=== PATIENT | female | born 1990 | race Caucasian/White ===

== ENCOUNTER 2020-09-13 20:41 | Emergency (ER) | payer SELFPAY ==
[~2020-09-13 20:41] MED LIST: IBUP-1060 PO; SULF1TAB24 PO
== END 2020-09-13 21:13 | disposition left against medical advice (07) ==
LOC: ER 20:41
DX: R10.9 Unspecified abdominal pain (principal); Z53.21 Procedure and treatment not carried out due to patient leaving prior to being seen by health care provider